=== PATIENT | male | born 1950 | race Caucasian/White ===

== ENCOUNTER 2016-10-15 11:01 | Observation (INO) | payer OTHER, BC ==
[~2016-10-15] VITALS: Ht 188 cm; Wt 84.3 kg
[~2016-10-15 11:01] MED LIST: ALBU1AER9; FLUT50SP14 NAE; LAMO200T PO; MULT-506 PO; WARF5TAB90 PO; WARF7.5T PO
[2016-10-15] MEDS ORDERED: SODIUM CHLORIDE 0.9% 1000ML 1,000 ML IV STA (11:25)
[2016-10-15 11:52] LABS: BASO % 0.9 %; BASO ABS # 0.04 K/uL (0-0.2); COMPLETE YES; EOS % 5.4 %; IG% 0.2 %; LYMPH % 25.9 %; LYMPH ABS # 1.11 K/uL (1.2-3.4); MEAN CELL VOLUME 93.8 fL (80-100); MEAN CORPUSCULAR HEMOGLOBIN 30.9 pg (25-34); MEAN CORPUSCULAR HGB CONC 32.9 g/dl (32-36); MEAN PLATELET VOLUME 10.1 fL (7.4-10.4); MONO % 9.6 %; PLATELET COUNT 191 K/uL (130-400); RED BLOOD COUNT 4.37 M/uL (4.7-6.1); WHITE BLOOD COUNT 4.28 K/uL (4.8-10.8)
[2016-10-15 11:59] LABS: ALT/SGPT 25 U/L (12-78); BLOOD UREA NITROGEN 17 mg/dl (7-18); BUN/CREATININE RATIO 16.7 (10-20); CALCIUM 8.7 mg/dl (8.5-10.1); CARBON DIOXIDE 28 mmol/L (21-32); CHLORIDE 108 mmol/L (98-107); CREATININE 0.99 mg/dl (0.60-1.40); GLUCOSE 97 mg/dl (70-99); MAGNESIUM 1.8 mg/dl (1.8-2.4); POTASSIUM 4.1 mmol/L (3.5-5.1); SODIUM 141 mmol/L (136-145)
[2016-10-15 12:00] LABS: PARTIAL THROMBOPLASTIN RATIO 1.3; PROTHROMBIN TIME (PATIENT) 22.5 SECONDS (9.0-12.0)
[2016-10-15 12:08] LABS: ALKALINE PHOSPHATASE 66 U/L (45-117); AST/SGOT 20 U/L (15-37); CKMB/CK RATIO 1.4 (0-3.0); THYROID STIMULATING HORMONE 0.655 uIu/ml (0.300-4.500)
[2016-10-15 12:12] LABS: URINE APPEARANCE CLEAR (CLEAR); URINE BILIRUBIN NEG (NEG); URINE COLOR YELLOW; URINE NITRITE NEG (NEG); URINE SPECIFIC GRAVITY 1.011 (1.000-1.030); UROBILINOGEN NEG (NEG)
[2016-10-15 12:15] LABS: MANUAL MICROSCOPIC REQUIRED? NO; REVIEW REQ? NO
--- NOTE | 2016-10-15 12:19 | DIAGNOSTIC IMAGING REPORT ---
SINGLE VIEW CHEST CLINICAL HISTORY: Generalized weakness. FINDINGS: 2 AP, portable, upright chest radiographs are compared to study dated 09/13/2011. The examination is mildly degraded by portable technique and patient rotation. The heart is top normal for projection and there is atherosclerotic calcification of the thoracic aorta. The pulmonary vasculature is noncongested. The lungs and pleural spaces are clear. No pneumothorax is seen. The skeletal structures appear osteopenic. Degenerative change is noted in the thoracic spine. Cholecystotomy clips are observed. IMPRESSION: No acute cardiopulmonary abnormality. Electronically signed by: Fede Chase M.D. 10/15/2016 12:18 PM Dictated Date/Time: 10/15/2016 12:17 PM
[2016-10-15] MEDS ORDERED: VNTHFA/IN INH (12:31)
[2016-10-15] MEDS ORDERED: QUET1TAB30 PO (12:31)
[2016-10-15] MEDS ORDERED: LISI1TAB3 PO (12:31)
[2016-10-15 14:10] VITALS: BP 134/83; PULSE 75; TEMP 36.7; O2SAT 95; Ht 188 cm; Wt 84.3 kg
[2016-10-15] MEDS ORDERED: NITROGLYCERIN 0.4 MG SL PER TAB CHARGE SL PRN (14:15)
[2016-10-15] MEDS ORDERED: IV FLUIDS COMPLETED PRN (14:30)
[2016-10-15] MEDS ORDERED: LORAZEPAM 0.5 MG TAB PO PRN (14:30)
--- NOTE | 2016-10-15 15:28 | History and Physical ---
History & Physical Date & Time of Service: Oct 15, 2016 at 14:45 Chief Complaint: Cardiac Primary Care Physician: Shmuel Dumas III, M.D. 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 of bifascicular block - states that this morning he started getting dizzy; he could feel the onset of almost passing out. Denied chest pain at that time. He then felt some jaw and throat tightness; initially he thought it was because of albuterol use this morning ( he has required albuterol for the past few days due to change in weather). He sat down, and then walked to the [facility] [place] where his works , but he still felt mildly dizzy and nauseous. Presented to the ER, states that his symptoms had already subsided by the time he came here. Initial set of enzymes negative, EKG shows a bifascicular block, which was present in 2014. Due to this jaw and throat tightness and presyncope, decision was made to admit him. Past Medical/Surgical History Medical Problems: (1) Cardiac arrhythmia Status: Chronic (2) HTN (hypertension) Status: Chronic Social History Smoking Status: Never Smoker Allergies Coded Allergies: No Known Allergies (Verified , 10/15/16) Home Medications Scheduled Albuterol Hfa (Ventolin Hfa), 2-4 PUFFS INH Q6H Lamotrigine (Lamictal), 200 MG PO HS Lisinopril (Zestril), 30 MG PO QAM Multivitamin (Multivitamin), 1 TABLET PO DAILY Quetiapine Fumarate (Seroquel), 25 MG PO HS Warfarin Sodium (Coumadin), 5 MG PO 2XWK Warfarin Sodium (Coumadin), 7.5 MG PO 5XWK Review of Systems Constitutional: No fever, No chills ENT: + sore throat, No hearing loss Respiratory: No cough, No sputum, No shortness of breath, No dyspnea on exertion, No dyspnea at rest Cardiovascular: No chest pain, No edema, No palpitations Abdomen: No pain, No nausea, No vomiting, No diarrhea, No constipation, No GI bleeding Musculoskeletal: No joint pain, No muscle pain Genitourinary - Male: No hematuria, No dysuria, No urinary frequency, No urinary urgency Neurologic: + vertigo (resolved) Psychiatric: + anxiety (controlled with meds), + insomnia (controlled with meds ), No depression symptoms Endocrine: No fatigue Hematologic / Lymphatic: No abnormal bleeding/bruising Integumentary: No rash Allergic / Immunologic: + seasonal allergies, No environmental allergies Physical Exam Vital Signs Date Time Temp Pulse Resp B/P (MAP) Pulse Ox O2 Delivery O2 Flow Rate FiO2 10/15/16 14:10 95 Room Air 10/15/16 13:11 79 16 139/81 95 Room Air 10/15/16 11:49 91 18 143/89 98 Room Air 61 142/84 101 153/82 10/15/16 11:12 88 10/15/16 11:09 96 Room Air 10/15/16 11:09 37.0 95 18 162/95 96 Room Air 10/15/16 11:09 96 Room Air General Appearance: no apparent distress Head: normocephalic, atraumatic Eyes: normal inspection ENT: hearing grossly normal Neck: supple Respiratory/Chest: chest non-tender, lungs clear, normal breath sounds, no respiratory distress, no accessory muscle use Cardiovascular: regular rate, rhythm, no edema, no gallop, no JVD, no murmur, normal peripheral pulses Abdomen/GI: normal bowel sounds, non tender, soft Extremities/Musculoskelatal: no calf tenderness, normal capillary refill, no pedal edema, + pertinent finding (L leg bigger than R leg, chronically) Neurologic/Psych: no motor/sensory deficits, alert, normal mood/affect Skin: normal color Lymphatic: no adenopathy Diagnostics Laboratory Results Results Past 24 Hours Test 10/15/16 11:34 10/15/16 11:52 Range/Units White Blood Count 4.28 4.8-10.8 K/uL Red Blood Count 4.37 4.7-6.1 M/uL Hemoglobin 13.5 14.0-18.0 g/dL Hematocrit 41.0 42-52 % Mean Corpuscular Volume 93.8 80-100 fL Mean Corpuscular Hemoglobin 30.9 25-34 pg Mean Corpuscular Hemoglobin Concent 32.9 32-36 g/dl Platelet Count 191 130-400 K/uL Mean Platelet Volume 10.1 7.4-10.4 fL Neutrophils (%) (Auto) 58.0 % Lymphocytes (%) (Auto) 25.9 % Monocytes (%) (Auto) 9.6 % Eosinophils (%) (Auto) 5.4 % Basophils (%) (Auto) 0.9 % Neutrophils # (Auto) 2.48 1.4-6.5 K/uL Lymphocytes # (Auto) 1.11 1.2-3.4 K/uL Monocytes # (Auto) 0.41 0.11-0.59 K/uL Eosinophils # (Auto) 0.23 0-0.5 K/uL Basophils # (Auto) 0.04 0-0.2 K/uL RDW Standard Deviation 45.3 36.4-46.3 fL RDW Coefficient of Variation 13.2 11.5-14.5 % Immature Granulocyte % (Auto) 0.2 % Immature Granulocyte # (Auto) 0.01 0.00-0.02 K/uL Prothrombin Time 22.5 9.0-12.0 SECONDS Prothromb Time International Ratio 2.0 0.9-1.1 Activated Partial Thromboplast Time 33.3 21.0-31.0 SECONDS Partial Thromboplastin Ratio 1.3 Sodium Level 141 136-145 mmol/L Potassium Level 4.1 3.5-5.1 mmol/L Chloride Level 108 98-107 mmol/L Carbon Dioxide Level 28 21-32 mmol/L Anion Gap 5.0 3-11 mmol/L Blood Urea Nitrogen 17 7-18 mg/dl Creatinine 0.99 0.60-1.40 mg/dl Est Creatinine Clear Calc Drug Dose 84.2 ml/min Estimated GFR () 91.0 Estimated GFR (Non- 78.5 BUN/Creatinine Ratio 16.7 10-20 Random Glucose 97 70-99 mg/dl Calcium Level 8.7 8.5-10.1 mg/dl Magnesium Level 1.8 1.8-2.4 mg/dl Total Bilirubin 0.3 0.2-1 mg/dl Direct Bilirubin < 0.1 0-0.2 mg/dl Aspartate Amino Transf (AST/SGOT) 20 15-37 U/L Alanine Aminotransferase (ALT/SGPT) 25 12-78 U/L Alkaline Phosphatase 66 45-117 U/L Total Creatine Kinase 188 39-308 U/L Creatine Kinase MB 2.7 0.5-3.6 ng/ml Creatine Kinase MB Ratio 1.4 0-3.0 Troponin I < 0.015 0-0.045 ng/ml Total Protein 6.7 6.4-8.2 gm/dl Albumin 3.4 3.4-5.0 gm/dl Lipase 135 73-393 U/L Thyroid Stimulating Hormone (TSH) 0.655 0.300-4.500 uIu/ml Urine Color YELLOW Urine Appearance CLEAR CLEAR Urine pH 7.0 4.5-7.5 Urine Specific [place] 1.011 1.000-1.030 Urine Protein NEG NEG Urine Glucose (UA) NEG NEG Urine Ketones NEG NEG Urine Occult Blood NEG NEG Urine Nitrite NEG NEG Urine Bilirubin NEG NEG Urine Urobilinogen NEG NEG Urine Leukocyte Esterase NEG NEG Diagnostic Radiology SINGLE VIEW CHEST CLINICAL HISTORY: Generalized weakness. FINDINGS: 2 AP, portable, upright chest radiographs are compared to study dated 09/13/2011. The examination is mildly degraded by portable technique and patient rotation. The heart is top normal for projection and there is atherosclerotic calcification of the thoracic aorta. The pulmonary vasculature is noncongested. The lungs and pleural spaces are clear. No pneumothorax is seen. The skeletal structures appear osteopenic. Degenerative change is noted in the thoracic spine. Cholecystotomy clips are observed. IMPRESSION: No acute cardiopulmonary abnormality. 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 of bifascicular block presents with presyncope and throat/jaw tightness Presyncope, r/o ACS, r/o arrhythmias monitor in tele EKG = bifascicular block, seems similar to previous EKG in 2015 initial cardiac enzyme negative trend enzymes check echo monitor in tele possible stress as per cardiology due to jaw pain, throat tightness, possibly atypical pain related to ACS check orthostatics Hx. of DVT continue Coumadin (5mg M and F, 7.5mg the other days) goal INR of 2-3 HTN continue Lisinopril BP stable DVT ppx Coumadin FULL CODE Advanced Directives Existing Living Will: Yes Existing Power of Milk Hauler: Yes VTE Prophylaxis VTE Risk Assessment Done? Y/N: Yes Risk Level: High Given or contraindicated: Warfarin (Coumadin)
[2016-10-15 15:29] VITALS: O2SAT 98
[2016-10-15] MEDS ORDERED: WARFARIN SOD 7.5 MG TAB PO SCH (16:00)
[2016-10-15] MEDS ORDERED: NURSING VERBAL MED ORDER ONE (18:30)
[2016-10-15] MEDS ORDERED: ACETAMINOPHEN 325 MG TAB PO PRN (18:45)
--- NOTE | 2016-10-15 19:20 | EMERGENCY ROOM VISIT NOTE ---
History Report prepared by Viktoriya: Kulwinder Hawkins Under the Supervision of: Dr. Shmuel Hernandez M.D. First contact with patient: 11:05 Chief Complaint: CARDIAC ASSESSMENT Stated Complaint: CARDIAC History of Present Illness The patient is a 66 year old male who presents to the Emergency Room with complaints of an episode of lightheadedness occurring shortly prior to arrival. The patient states that he was walking up a slight incline when he suddenly began feeling generalized weakness, lightheadedness, and dizziness. He states that he felt completely normal this morning other than feeling tired. He states that he had a similar episode occur about 1.5 years ago which passed after about an hour. The patient states that he also experienced a "tightening" in his jaw, nausea and a pain in his throat during the episode. He states that he began sweating after the ambulance arrived. He notes that he has a history of a cardiac arrhythmia. The patient in on Coumadin and has been taking it for 30 years. He is on Seroquel and Lisinopril. He states that he worked out yesterday without difficulty. The patient notes that he had a headache a few days ago which is abnormal for him. Pt denies LOC, chest pain, facial droop, speech slur , fevers, chills, diaphoresis, visual changes, neck pain, tearing pain radiating to the back, personal history or family history of aneurysm or pulmonary embolism, uncontrolled hypertension, breathing difficulties, leg swelling, coagulation abnormalities, prolonged travel, recent surgery or immobilization, nausea, vomiting, abdominal pain, melena, hematochezia, urinary symptoms, numbness, weakness, lymphadenopathy, rash, or other complaints. Source of History: patient Onset: shortly prior to arrival Quality: other (lightheadedness) Timing: other (episode) Associated Symptoms: + nausea, + weakness (generalized) Note: The patient also experienced a "tightening" in his jaw and a pain in his throat during the episode. Review of Systems See HPI for pertinent positives and negatives. A total of ten systems were reviewed and were otherwise negative. Past Medical & Surgical Medical Problems: (1) Cardiac arrhythmia (2) HTN (hypertension) (3) Pre-syncope Family History No pertinent family history stated. Social History Housing Status: lives with significant other Occupation Status: employed Current/Historical Medications Scheduled Albuterol Hfa (Ventolin Hfa), 2-4 PUFFS INH Q6H Lamotrigine (Lamictal), 200 MG PO HS Lisinopril (Zestril), 30 MG PO QAM Multivitamin (Multivitamin), 1 TABLET PO DAILY Quetiapine Fumarate (Seroquel), 25 MG PO HS Warfarin Sodium (Coumadin), 5 MG PO 2XWK Warfarin Sodium (Coumadin), 7.5 MG PO 5XWK Allergies Coded Allergies: No Known Allergies (Verified , 10/15/16) Physical Exam Vital Signs Date Time Temp Pulse Resp B/P (MAP) Pulse Ox O2 Delivery O2 Flow Rate FiO2 10/15/16 13:11 79 16 139/81 95 Room Air 10/15/16 11:49 91 18 143/89 98 Room Air 61 142/84 101 153/82 10/15/16 11:12 88 10/15/16 11:09 96 Room Air 10/15/16 11:09 37.0 95 18 162/95 96 Room Air 10/15/16 11:09 96 Room Air Physical Exam GENERAL: Awake, alert, well appearing, no distress HENT: Normocephalic, atraumatic. TM's normal. Oropharynx unremarkable. EYES: PERRL. EOMI. Normal conjunctiva. Sclera non-icteric. NECK: Supple. No nuchal rigidity. FROM. No JVD or bruit. RESPIRATORY: CTA CARDIAC: RRR. No murmur. ABDOMEN: Soft, non distended. No tenderness to palpation. No rebound or guarding. No masses. RECTAL: Deferred. MUSCULOSKELETAL: Unremarkable. No edema. No discoloration. Gross motor strength symmetric. NEURO: Cranial nerves 2-12 grossly intact. Normal sensorium. No sensory or motor deficits noted. Speech normal. No pronator drift. SKIN: No rash or jaundice noted. LYMPH: No adenopathy. Medical Decision & Procedures ER Provider Diagnostic Interpretation: X-ray: Per my interpretation, radiologist review. SINGLE VIEW CHEST FINDINGS: 2 AP, portable, upright chest radiographs are compared to study dated 09/13/2011. The examination is mildly degraded by portable technique and patient rotation. The heart is top normal for projection and there is atherosclerotic calcification of the thoracic aorta. The pulmonary vasculature is noncongested. The lungs and pleural spaces are clear. No pneumothorax is seen. The skeletal structures appear osteopenic. Degenerative change is noted in the thoracic spine. Cholecystotomy clips are observed. IMPRESSION: No acute cardiopulmonary abnormality. Electronically signed by: Fede Chase M.D. Laboratory Results 10/15/16 11:34 Red Blood Count 4.37, Mean Corpuscular Volume 93.8, Mean Corpuscular Hemoglobin 30.9, Mean Corpuscular Hemoglobin Concent 32.9, Mean Platelet Volume 10.1, Neutrophils (%) (Auto) 58.0, Lymphocytes (%) (Auto) 25.9, Monocytes (%) (Auto) 9.6, Eosinophils (%) (Auto) 5.4, Basophils (%) (Auto) 0.9, Neutrophils # (Auto) 2.48, Lymphocytes # (Auto) 1.11, Monocytes # (Auto) 0.41, Eosinophils # (Auto) 0.23, Basophils # (Auto) 0.04 10/15/16 11:34 Test 10/15/16 11:34 10/15/16 11:52 White Blood Count 4.28 K/uL (4.8-10.8) Red Blood Count 4.37 M/uL (4.7-6.1) Hemoglobin 13.5 g/dL (14.0-18.0) Hematocrit 41.0 % (42-52) Mean Corpuscular Volume 93.8 fL (80-100) Mean Corpuscular Hemoglobin 30.9 pg (25-34) Mean Corpuscular Hemoglobin Concent 32.9 g/dl (32-36) Platelet Count 191 K/uL (130-400) Mean Platelet Volume 10.1 fL (7.4-10.4) Neutrophils (%) (Auto) 58.0 % Lymphocytes (%) (Auto) 25.9 % Monocytes (%) (Auto) 9.6 % Eosinophils (%) (Auto) 5.4 % Basophils (%) (Auto) 0.9 % Neutrophils # (Auto) 2.48 K/uL (1.4-6.5) Lymphocytes # (Auto) 1.11 K/uL (1.2-3.4) Monocytes # (Auto) 0.41 K/uL (0.11-0.59) Eosinophils # (Auto) 0.23 K/uL (0-0.5) Basophils # (Auto) 0.04 K/uL (0-0.2) RDW Standard Deviation 45.3 fL (36.4-46.3) RDW Coefficient of Variation 13.2 % (11.5-14.5) Immature Granulocyte % (Auto) 0.2 % Immature Granulocyte # (Auto) 0.01 K/uL (0.00-0.02) Prothrombin Time 22.5 SECONDS (9.0-12.0) Prothromb Time International Ratio 2.0 (0.9-1.1) Activated Partial Thromboplast Time 33.3 SECONDS (21.0-31.0) Partial Thromboplastin Ratio 1.3 Anion Gap 5.0 mmol/L (3-11) Est Creatinine Clear Calc Drug Dose 84.2 ml/min Estimated GFR () 91.0 Estimated GFR (Non- 78.5 BUN/Creatinine Ratio 16.7 (10-20) Calcium Level 8.7 mg/dl (8.5-10.1) Magnesium Level 1.8 mg/dl (1.8-2.4) Total Bilirubin 0.3 mg/dl (0.2-1) Direct Bilirubin < 0.1 mg/dl (0-0.2) Aspartate Amino Transf (AST/SGOT) 20 U/L (15-37) Alanine Aminotransferase (ALT/SGPT) 25 U/L (12-78) Alkaline Phosphatase 66 U/L (45-117) Total Creatine Kinase 188 U/L (39-308) Creatine Kinase MB 2.7 ng/ml (0.5-3.6) Creatine Kinase MB Ratio 1.4 (0-3.0) Troponin I < 0.015 ng/ml (0-0.045) Total Protein 6.7 gm/dl (6.4-8.2) Albumin 3.4 gm/dl (3.4-5.0) Lipase 135 U/L (73-393) Thyroid Stimulating Hormone (TSH) 0.655 uIu/ml (0.300-4.500) Urine Color YELLOW Urine Appearance CLEAR (CLEAR) Urine pH 7.0 (4.5-7.5) Urine Specific [place] 1.011 (1.000-1.030) Urine Protein NEG (NEG) Urine Glucose (UA) NEG (NEG) Urine Ketones NEG (NEG) Urine Occult Blood NEG (NEG) Urine Nitrite NEG (NEG) Urine Bilirubin NEG (NEG) Urine Urobilinogen NEG (NEG) Urine Leukocyte Esterase NEG (NEG) Laboratory results reviewed by me Medications Administered Medications (Trade) Dose Ordered Sig/Earl Route Start Time Stop Time Status Last Admin Dose Admin Sodium Chloride 1,000 ml @ 125 mls/hr Q8H STAT IV 10/15/16 11:25 10/15/16 19:24 10/15/16 11:25 125 MLS/HR ECG Indication: other (lightheadedness) Rate (beats per minute): 104 Rhythm: sinus tachycardia Findings: LAFB, PVC, RBBB, no acute ischemic change Comparison ECG Date: Pre-Hospital Change: no significant change Change: Compared to an ECG from December 17, 2014, the PVC is new. ED Course 1112: The patient was evaluated in room B2. A complete history and physical exam was performed. 1125: Ordered Sodium Chloride 1000 ml @ 125 mls/hr IV. 1343: Upon reexamination, the patient was resting comfortably. I discussed the test results and treatment plan with him. The patient will be evaluated for further management. Medical Decision Triage Nursing notes reviewed. The patient's presentation and history were concerning for near syncope and weakness. Etiologies such as vasovagal event, infection, hypoglycemia, electrolyte abnormalities, cardiac sources, intracerebral event, toxicologic, neurologic, as well as others were entertained. The patient was evaluated. He noted sudden onset of his symptoms. He denied any vertigo or room spinning sensation. He had no focal weakness. EMS and I discussed the patient's case prehospital. He had no stroke findings for EMS. The patient actually is feeling relatively well upon arrival. His ECG showed a bifascicular block. Blood work was obtained. He had a mild anemia. His INR was therapeutic at 2.0. His electrolytes and other laboratory values were unremarkable. Imaging was unremarkable as well. Orthostatic testing was performed the patient had some brisk fluctuation of his heart rate and did feel somewhat off with this. Because of this I did discuss the case with Dr. Handy of [facility] cardiology. It was felt the patient should be monitored and have a full cardiac workup performed given his symptoms and the orthostasis in light of the bifascicular block. The patient and family were updated. They were comfortable with this plan. I did discuss the case with the hospitalist. The patient was evaluated in the Emergency Room for further management. Medication Reconcilliation Current Medication List: was personally reviewed by me Blood Pressure Screening Patient's blood pressure: Elevated blood pressure Referral was deferred to the hospitalist team. Consults Time Called: 1324 Consulting Physician: Dr. Rice -Cardiology Returned Call: 1330 Discussed the patient's case. Dr. Rice recommends that the patient be admitted for further evaluation. Additional Consults: Time Called: 1340 Consulted Physician: Dr. Leandro Jonas Returned Call: 1346 Additional Comments: Discussed the patient's case. The patient will be evaluated for further treatment and disposition. Impression Primary Impression: Near syncope Additional Impressions: Weakness Orthostasis Scribe Attestation The scribe's documentation has been prepared under my direction and personally reviewed by me in its entirety. I confirm that the note above accurately reflects all work, treatment, procedures, and medical decision making performed by me. Departure Information Dispostion Being Evaluated By Hospitalist Referrals Shmuel Dumas III, M.D. (PCP) Patient Instructions [facility] Problem Qualifiers
[2016-10-15 19:53] VITALS: BP 155/85; PULSE 78; O2SAT 97
[2016-10-15 20:13] LABS: CKMB/CK RATIO 1.3 (0-3.0)
[2016-10-15] MEDS ORDERED: QUETIAPINE FUMARATE 25 MG TAB PO SCH (21:00)
[2016-10-15] MEDS ORDERED: LAMOTRIGINE 200 MG PO SCH (21:00)
[2016-10-15] MEDS ORDERED: QUETIAPINE FUMARATE 100 MG TAB PO SCH (21:00)
--- NOTE | 2016-10-15 23:10 | CARDIOLOGY CONSULTATION ---
DATE OF CONSULTATION: 10/15/2016 REFERRING PHYSICIAN: Dr. Karen Reeves. REASON FOR CONSULTATION: Throat discomfort, lightheadedness. HISTORY OF PRESENT ILLNESS: Mr. Romero is a 66-year-old male patient with a past medical history of deep venous thrombosis x2, on long-term anticoagulation, hypertension, anxiety and bifascicular block. This morning the patient went for a walk through campus. He became acutely lightheaded and felt as if he was going to pass out. He managed to make it to a park bench. He sat for approximately 20 minutes. He noted some tightness in his throat which gradually resolved. Eventually, he was able to walk to his 's store where he continued to feel quite lightheaded. No overt syncope. There was no chest discomfort or shortness of breath. Feels that this may have been related to some albuterol as well as a large cup of coffee he drank this morning. He summoned EMS and they came to the Emergency Department. His ECG demonstrated sinus tachycardia with a bifascicular block (right bundle-branch block, left anterior fascicular block). Initial set of cardiac enzymes is negative. He was then admitted to the progressive care unit through the hospitalist service. Currently, the patient is resting comfortably. Telemetry demonstrates sinus rhythm with occasional blocked PACs, isolated PAC's, and atrial couplets. No recurrent chest or jaw discomfort. Denies any recent change in functional capacity, palpitations, orthopnea, PND or claudication. Notes chronic left lower extremity edema related to previous soccer injury. This was also the leg which suffered deep venous thrombosis x2. He has been on Coumadin for more than 30 years. Offers no other complaints at this time. REVIEW OF SYSTEMS: The pertinent positives are notable above. A comprehensive 10-system review is otherwise negative. PAST MEDICAL HISTORY: 1. DVT x2, on chronic anticoagulation. 2. Colon polyp. 3. Bifascicular block. 4. Pulsatile tinnitus. 5. GERD. 6. Epistaxis. 7. Cholecystitis. 8. Reactive airways disease. 9. Actinic keratosis. PAST SURGICAL HISTORY: Orthopedic knee surgery. SOCIAL HISTORY: Lifelong nonsmoker. He is and lives with his . He is a retired professor. ALLERGIES: No known drug allergies. OUTPATIENT MEDICATIONS: 1. Albuterol inhaler 2-4 puffs q. 6 hours. 2. Lamictal 200 mg at bedtime. 3. Zestril 30 mg a day. 4. Multivitamin daily. 5. Seroquel 25 mg daily. 6. Warfarin 5 mg 2 days per day, 7.5 mg 5 days per week. 7. Singulair 10 mg daily. Chest x-ray on admission, no acute cardiopulmonary abnormality. LABORATORY DATA: White blood cell count 4.28, hemoglobin is 13.5, platelet count is 191. Sodium 141, potassium 4.1, chloride is 108, CO2 is 28, BUN is 17, creatinine is 0.99. Troponins undetectable. TSH 0.655. INR is 2.0. Urinalysis within normal limits. PHYSICAL EXAMINATION: VITAL SIGNS: Temperature is 37 degrees centigrade, pulse is 84 beats per minute and regular, respiratory rate 16 breaths per minute, blood pressure 152/89, SaO2 98% on room air. GENERAL: NAD, awake, alert and oriented x3. He is pleasant and cooperative. THROAT: His mucous membranes are moist. There is no scleral icterus. Conjunctivae are pink. NECK: Supple. There is no JVD, no HJR, no carotid bruit. HEART: Regular with a normal S1 and S2. There is no murmur, rub or gallop. LUNGS: Clear bilateral without rales, rhonchi or wheeze. ABDOMEN: Soft, nontender. No rebound or guarding. Normal bowel sounds. EXTREMITIES: Warm and dry. There is mild left lower extremity pedal edema with stasis changes in the pretibial region. There is no calf tenderness. Distal pulses are palpable. NEUROLOGIC: Demonstrates no focal motor deficit. FINAL IMPRESSION: 1. A 66-year-old male presents with near syncope and throat discomfort. 2. Hypertension -- controlled. 3. History of deep venous thrombosis, on chronic anticoagulation. 4. Bifascicular block. 5. Occasional PAC's - asymptomatic PLAN AND RECOMMENDATIONS: I had a long discussion with the patient and his regarding his symptoms. We will continue telemetry monitoring to exclude presence of tachy or manan dysrhythmias. Further ischemic evaluation is warranted given presence of exertional symptoms. An exercise stress echo will be performed in the a.m. if cardiac enzymes are within normal limits. A complete resting 2D transthoracic echo will be performed prior to stress testing. He will continue current outpatient medications as previously ordered. I will continue to follow closely during hospitalization. Thank you for allowing me to take part in the care of your patient. MONIQUE
[2016-10-16] VITALS: BP_SYST 128; BP_SYST 129; BP_SYST 132; BP_DIAS 67; BP_DIAS 83; BP_DIAS 85; PULSE 63; PULSE 69; PULSE 71; TEMP 36.3; O2SAT 95
[2016-10-16 04:01] LABS: HEMATOCRIT 39.6 % (42-52); MEAN CELL VOLUME 95.2 fL (80-100); MEAN CORPUSCULAR HEMOGLOBIN 31.3 pg (25-34); MEAN CORPUSCULAR HGB CONC 32.8 g/dl (32-36); MEAN PLATELET VOLUME 9.9 fL (7.4-10.4); PLATELET COUNT 188 K/uL (130-400); RED BLOOD COUNT 4.16 M/uL (4.7-6.1); WHITE BLOOD COUNT 5.57 K/uL (4.8-10.8)
[2016-10-16 04:03] VITALS: BP 140/77; PULSE 75; TEMP 36.5; O2SAT 95
[2016-10-16 04:19] LABS: BUN/CREATININE RATIO 15.1 (10-20); CALCIUM 8.5 mg/dl (8.5-10.1); CREATININE 1.1 mg/dl (0.60-1.40); POTASSIUM 4.4 mmol/L (3.5-5.1)
[2016-10-16 04:24] LABS: CHOLESTEROL/HDL RATIO 3.7; CKMB/CK RATIO 1.6 (0-3.0)
[2016-10-16 08:21] VITALS: BP_SYST 133; BP_SYST 137; BP_SYST 149; BP_DIAS 78; BP_DIAS 91; BP_DIAS 93; PULSE 76; PULSE 80; TEMP 36.4; O2SAT 96
[2016-10-16 08:22] LABS: PROTHROMBIN TIME (PATIENT) 22.5 SECONDS (9.0-12.0)
[2016-10-16] MEDS ORDERED: NURSING VERBAL MED ORDER ONE (08:45)
--- NOTE | 2016-10-16 08:46 | Progress Note ---
Subjective Date of Service: Oct 16, 2016. Subjective Pt evaluation today including: conversation w/ patient, physical exam, lab review, review of studies, review of inpatient medication list Saw/examined the patient in room 208 No problems/issues to note today, denies chest pain or shortness of breath Denies dizziness or syncopal episode Problem List Medical Problems: (1) Near syncope Status: Acute (2) Orthostasis Status: Acute (3) Weakness Status: Acute Review of Systems Constitutional: No fever, No chills Respiratory: No cough, No sputum, No wheezing, No shortness of breath, No dyspnea on exertion Cardiac: No chest pain, No edema, No palpitations Abdomen: No pain, No nausea, No vomiting, No diarrhea Male : No dysuria, No urinary frequency Neurologic: No vertigo, No balance problems Medications Current Inpatient Medications Medications (Trade) Dose Ordered Sig/Earl Route Start Time Stop Time Status Last Admin Dose Admin Nitroglycerin (Nitrostat Tab) 0.4 mg UD PRN SL 10/15/16 14:15 11/14/16 14:14 Multivitamins (Multivitamin Tab) 1 tab DAILY PO 10/16/16 09:00 11/15/16 08:59 10/16/16 07:51 1 TAB Warfarin Sodium (Coumadin Tab) 5 mg MoFr@1600 PO 10/16/16 16:00 11/15/16 15:59 Warfarin Sodium (Coumadin Tab) 7.5 mg SuTuWeThSa@1600 PO 10/15/16 16:00 11/14/16 15:59 Lorazepam (Ativan Tab) 0.5 mg BID PRN PO 10/15/16 14:30 11/14/16 14:29 Miscellaneous (Iv Fluids Completed) 1 ea PRN PRN N/A 10/15/16 14:30 10/15/17 14:29 Non-Formulary Medication (Non-Formulary Patient'S Own Med) 1 ea QAM PO 10/16/16 09:00 11/15/16 08:59 10/16/16 07:51 1 EA Acetaminophen (Tylenol Tab) 650 mg Q4H PRN PO 10/15/16 18:45 11/14/16 18:44 10/15/16 19:59 650 MG Non-Formulary Medication (Non-Formulary Patient'S Own Med) 1 ea HS PO 10/15/16 21:00 11/14/16 20:59 10/15/16 22:32 1 EA Quetiapine Fumarate (seroQUEL TAB) 25 mg HS PO 10/15/16 21:00 11/14/16 20:59 10/15/16 22:33 25 MG Objective Vital Signs Date Time Temp Pulse Resp B/P (MAP) Pulse Ox O2 Delivery O2 Flow Rate FiO2 10/16/16 08:21 36.4 76 18 133/78 (96) 96 Room Air 76 137/93 (108) 80 149/91 (110) 10/16/16 04:03 36.5 75 18 140/77 (98) 95 Room Air 10/16/16 04:00 Room Air 10/16/16 00:02 Room Air 10/16/16 00:00 36.3 63 18 132/67 (88) 95 Room Air 69 128/83 (98) 71 129/85 (100) 10/15/16 20:00 Room Air 10/15/16 19:53 78 20 155/85 (108) 97 Room Air 10/15/16 15:29 84 16 152/89 98 Room Air 10/15/16 14:10 36.7 75 16 134/83 95 Room Air 10/15/16 13:11 79 16 139/81 95 Room Air 10/15/16 11:49 91 18 143/89 98 Room Air 61 142/84 101 153/82 10/15/16 11:12 88 10/15/16 11:09 96 Room Air 10/15/16 11:09 37.0 95 18 162/95 96 Room Air 10/15/16 11:09 96 Room Air Physical Exam General Appearance: no apparent distress Respiratory/Chest: chest non-tender, lungs clear, normal breath sounds, no respiratory distress, no accessory muscle use Cardiovascular: regular rate, rhythm, no edema, no murmur Abdomen: normal bowel sounds, non tender, soft Extremities: normal inspection, no pedal edema Neurologic/Psychiatric: no motor/sensory deficits, alert, normal mood/affect Laboratory Results Last 24 Hours Test 10/15/16 11:34 10/15/16 11:52 10/15/16 19:39 10/16/16 03:46 White Blood Count 4.28 K/uL 5.57 K/uL Red Blood Count 4.37 M/uL 4.16 M/uL Hemoglobin 13.5 g/dL 13.0 g/dL Hematocrit 41.0 % 39.6 % Mean Corpuscular Volume 93.8 fL 95.2 fL Mean Corpuscular Hemoglobin 30.9 pg 31.3 pg Mean Corpuscular Hemoglobin Concent 32.9 g/dl 32.8 g/dl Platelet Count 191 K/uL 188 K/uL Mean Platelet Volume 10.1 fL 9.9 fL Neutrophils (%) (Auto) 58.0 % Lymphocytes (%) (Auto) 25.9 % Monocytes (%) (Auto) 9.6 % Eosinophils (%) (Auto) 5.4 % Basophils (%) (Auto) 0.9 % Neutrophils # (Auto) 2.48 K/uL Lymphocytes # (Auto) 1.11 K/uL Monocytes # (Auto) 0.41 K/uL Eosinophils # (Auto) 0.23 K/uL Basophils # (Auto) 0.04 K/uL RDW Standard Deviation 45.3 fL 45.7 fL RDW Coefficient of Variation 13.2 % 13.2 % Immature Granulocyte % (Auto) 0.2 % Immature Granulocyte # (Auto) 0.01 K/uL Prothrombin Time 22.5 SECONDS Prothromb Time International Ratio 2.0 Activated Partial Thromboplast Time 33.3 SECONDS Partial Thromboplastin Ratio 1.3 Sodium Level 141 mmol/L 144 mmol/L Potassium Level 4.1 mmol/L 4.4 mmol/L Chloride Level 108 mmol/L 109 mmol/L Carbon Dioxide Level 28 mmol/L 33 mmol/L Anion Gap 5.0 mmol/L 2.0 mmol/L Blood Urea Nitrogen 17 mg/dl 17 mg/dl Creatinine 0.99 mg/dl 1.10 mg/dl Est Creatinine Clear Calc Drug Dose 84.2 ml/min 75.8 ml/min Estimated GFR () 91.0 80.1 Estimated GFR (Non- 78.5 69.1 BUN/Creatinine Ratio 16.7 15.1 Random Glucose 97 mg/dl 85 mg/dl Calcium Level 8.7 mg/dl 8.5 mg/dl Magnesium Level 1.8 mg/dl Total Bilirubin 0.3 mg/dl Direct Bilirubin < 0.1 mg/dl Aspartate Amino Transf (AST/SGOT) 20 U/L Alanine Aminotransferase (ALT/SGPT) 25 U/L Alkaline Phosphatase 66 U/L Total Creatine Kinase 188 U/L 143 U/L 105 U/L Creatine Kinase MB 2.7 ng/ml 1.9 ng/ml 1.7 ng/ml Creatine Kinase MB Ratio 1.4 1.3 1.6 Troponin I < 0.015 ng/ml 0.022 ng/ml 0.019 ng/ml Total Protein 6.7 gm/dl Albumin 3.4 gm/dl Lipase 135 U/L Thyroid Stimulating Hormone (TSH) 0.655 uIu/ml Urine Color YELLOW Urine Appearance CLEAR Urine pH 7.0 Urine Specific [place] 1.011 Urine Protein NEG Urine Glucose (UA) NEG Urine Ketones NEG Urine Occult Blood NEG Urine Nitrite NEG Urine Bilirubin NEG Urine Urobilinogen NEG Urine Leukocyte Esterase NEG Triglycerides Level 102 mg/dl Cholesterol Level 147 mg/dl HDL Cholesterol 40 mg/dl LDL Cholesterol, Calculated 87 mg/dl VLDL Cholesterol, Calculated 20 mg/dl Cholesterol/HDL Ratio 3.7 Test 10/16/16 07:56 Prothrombin Time 22.5 SECONDS Prothromb Time International Ratio 2.0 Assessment and Plan This is a 66 year old male with a 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 of bifascicular block presents with presyncope and throat/jaw tightness Presyncope, r/o ACS, r/o arrhythmias 10/16 cardiac enzymes negative x3 EKG, NSR with RBBB noted echo pending plan is for stress echo later today patient currently NPO continue current medications d/c if stress is negative as presyncopal/dizziness episodes have resolved 10/15 monitor in tele EKG = bifascicular block, seems similar to previous EKG in 2015 initial cardiac enzyme negative trend enzymes check echo monitor in tele possible stress as per cardiology due to jaw pain, throat tightness, possibly atypical pain related to ACS check orthostatics Hx. of DVT continue Coumadin (5mg M and F, 7.5mg the other days) goal INR of 2-3 HTN continue Lisinopril BP stable DVT ppx Coumadin FULL CODE
[2016-10-16] MEDS ORDERED: LISINOPRIL 10 MG TAB PO SCH (09:00)
[2016-10-16] MEDS ORDERED: WARFARIN SOD 5 MG TAB PO SCH ×3 (09:00→16:00)
[2016-10-16] MEDS ORDERED: LISINOPRIL 30 MG PO SCH (09:00)
[2016-10-16] MEDS ORDERED: MULTIVITAMIN TAB PO SCH (09:00)
--- NOTE | 2016-10-16 11:15 | Cardiology Follow-Up ---
Subjective General Date of Service: Oct 16, 2016. Pt evaluation today including: conversation w/ patient, physical exam, chart review, lab review, review of studies, review of inpatient medication list History of Present Illness The patient is a 66 year old male seen in follow-up. No events on telemetry overnight. Occasional PACs and PVCs recorded. No sustained dysrhythmias, significant pauses, heart block, or symptomatically bradycardia. No recurrent chest or throat discomfort. Patient offers no complaints this time. Allergies Coded Allergies: No Known Allergies (Verified , 10/15/16) Social History Smoking Status: Never Smoker Hx Tobacco Use In Past Year?: No Hx Alcohol Use - Type And Amou: No Hx Substance Use - Type And Am: No Problem List Medical Problems: (1) Near syncope Status: Acute (2) Orthostasis Status: Acute (3) Weakness Status: Acute Review of Systems Respiratory: No cough, No sputum, No wheezing, No shortness of breath, No dyspnea on exertion, No dyspnea at rest, No hemoptysis Cardiac: No chest pain, No orthopnea, No PND, No edema, No claudication, No palpitations Physical Exam Vital Signs Last Vital Signs Documentation Date Time Temp Pulse Resp B/P (MAP) Pulse Ox O2 Delivery O2 Flow Rate FiO2 10/16/16 08:21 36.4 76 18 133/78 (96) 96 Room Air 76 137/93 (108) 80 149/91 (110) Physical Exam Constitutional: General Apperance: heathly-appearing Level of Distress: NAD Ambulation: ambulating normally Head: normocephalic, atraumatic ENMT: normal ENT inspection Neck: supple, trachea midline Lungs: Auscultation: breath sounds normal, no wheezing, no rales/crackles, no rhonchi Cardiovascular: Heart Auscultation: RRR, normal S1, normal S2, no murmurs, no rubs, no gallops Peripheral Pulses: Femoral Pulse: normal on the left, normal on the right Abdomen: Bowel Sounds: normal Inspection & Palpation: soft, non-distended, no tenderness, guarding & rebound Musculoskeletal: normal Extremities: no cyanosis, no edema, no clubbing, no ulcers Neurologic: Gait & Station: pertinent finding (no focal deficit) Cranial Nerves: grossly intact Assessment and Plan Assessment and Plan FINAL IMPRESSION: 1. Near syncope and atypical throat discomfort. - CE negative - no dysrhythmia on telemetry 2. Hypertension -- controlled. 3. History of deep venous thrombosis, on chronic anticoagulation. 4. Bifascicular block. PLAN AND RECOMMENDATIONS: Exercise stress echocardiography will be performed this morning for further risk stratification. Recommend outpatient 14 day ZIO monitor if stress testing is within normal limits. No medication changes this morning. Further recommendations pending review of stress test result. Laboratory Results Last 24 Hours Test 10/15/16 11:34 10/15/16 11:52 10/15/16 19:39 10/16/16 03:46 White Blood Count 4.28 K/uL 5.57 K/uL Red Blood Count 4.37 M/uL 4.16 M/uL Hemoglobin 13.5 g/dL 13.0 g/dL Hematocrit 41.0 % 39.6 % Mean Corpuscular Volume 93.8 fL 95.2 fL Mean Corpuscular Hemoglobin 30.9 pg 31.3 pg Mean Corpuscular Hemoglobin Concent 32.9 g/dl 32.8 g/dl Platelet Count 191 K/uL 188 K/uL Mean Platelet Volume 10.1 fL 9.9 fL Neutrophils (%) (Auto) 58.0 % Lymphocytes (%) (Auto) 25.9 % Monocytes (%) (Auto) 9.6 % Eosinophils (%) (Auto) 5.4 % Basophils (%) (Auto) 0.9 % Neutrophils # (Auto) 2.48 K/uL Lymphocytes # (Auto) 1.11 K/uL Monocytes # (Auto) 0.41 K/uL Eosinophils # (Auto) 0.23 K/uL Basophils # (Auto) 0.04 K/uL RDW Standard Deviation 45.3 fL 45.7 fL RDW Coefficient of Variation 13.2 % 13.2 % Immature Granulocyte % (Auto) 0.2 % Immature Granulocyte # (Auto) 0.01 K/uL Prothrombin Time 22.5 SECONDS Prothromb Time International Ratio 2.0 Activated Partial Thromboplast Time 33.3 SECONDS Partial Thromboplastin Ratio 1.3 Sodium Level 141 mmol/L 144 mmol/L Potassium Level 4.1 mmol/L 4.4 mmol/L Chloride Level 108 mmol/L 109 mmol/L Carbon Dioxide Level 28 mmol/L 33 mmol/L Anion Gap 5.0 mmol/L 2.0 mmol/L Blood Urea Nitrogen 17 mg/dl 17 mg/dl Creatinine 0.99 mg/dl 1.10 mg/dl Est Creatinine Clear Calc Drug Dose 84.2 ml/min 75.8 ml/min Estimated GFR () 91.0 80.1 Estimated GFR (Non- 78.5 69.1 BUN/Creatinine Ratio 16.7 15.1 Random Glucose 97 mg/dl 85 mg/dl Calcium Level 8.7 mg/dl 8.5 mg/dl Magnesium Level 1.8 mg/dl Total Bilirubin 0.3 mg/dl Direct Bilirubin < 0.1 mg/dl Aspartate Amino Transf (AST/SGOT) 20 U/L Alanine Aminotransferase (ALT/SGPT) 25 U/L Alkaline Phosphatase 66 U/L Total Creatine Kinase 188 U/L 143 U/L 105 U/L Creatine Kinase MB 2.7 ng/ml 1.9 ng/ml 1.7 ng/ml Creatine Kinase MB Ratio 1.4 1.3 1.6 Troponin I < 0.015 ng/ml 0.022 ng/ml 0.019 ng/ml Total Protein 6.7 gm/dl Albumin 3.4 gm/dl Lipase 135 U/L Thyroid Stimulating Hormone (TSH) 0.655 uIu/ml Urine Color YELLOW Urine Appearance CLEAR Urine pH 7.0 Urine Specific [place] 1.011 Urine Protein NEG Urine Glucose (UA) NEG Urine Ketones NEG Urine Occult Blood NEG Urine Nitrite NEG Urine Bilirubin NEG Urine Urobilinogen NEG Urine Leukocyte Esterase NEG Triglycerides Level 102 mg/dl Cholesterol Level 147 mg/dl HDL Cholesterol 40 mg/dl LDL Cholesterol, Calculated 87 mg/dl VLDL Cholesterol, Calculated 20 mg/dl Cholesterol/HDL Ratio 3.7 Test 10/16/16 07:56 Prothrombin Time 22.5 SECONDS Prothromb Time International Ratio 2.0
[2016-10-16 12:49] VITALS: BP 133/70; PULSE 77; TEMP 37.4; O2SAT 94
[2016-10-16] MEDS ORDERED: ASPIRIN 81 MG ECTAB PO ONE (13:00)
[2016-10-16] MEDS ORDERED: ATORVASTATIN 20 MG TAB PO ONE (13:00)
--- NOTE | 2016-10-16 13:01 | EXERCISE STRESS ECHO ---
*NOTICE TO RECEIVING CONSTITUTION PARTY AGENCY This information is strictly Confidential and protected under [place] law. [place] law prohibits you from making any further disclosure of this information unless further disclosure is expressly permitted by the written consent of the person to whom it pertains or is authorized by law. A general authorization for the release of medical or other information is not sufficient for this purpose. Hospital accepts no responsibility if the information is made available to any other person, INCLUDING THE PATIENT. Interpretation Summary * Name: NAY PRADHAN Study Date: 10/16/2016 10:11 AM BP: 135/83 mmHg * Patient Location: .2E\S\E208\S\1 HR: 74 * : 1950 (M/d/yyyy) Gender: Male Height: 74 in * Age: 66 yrs Ethnicity: [place] Weight: 185 lb * Ordering Physician: Fady Handy * Referring Physician: Self, Referred * Performed By: Jasmin Alatorre RDCS * * Reason For Study: CHEST PAIN * BSA: 2.1 m2 * Abnormal exercise stress echo demonstrating a focal area of apical inferior ischemia on stress imaging. * No anginal symptoms or ischemic ECG changes at 100% of the maximal age-predicted target heart rate. * Exercise capacity is above average. * The study was technically adequate. * There is no comparison study available. * -- Conclusions -- * Ejection Fraction = 55-60%. * The left ventricular ejection fraction increases normally with stress. The left ventricular end-systolic cavity size reduces post-stress (normal response). The left ventricular wall motion with stress is normal. * Normal resting wall motion with a focal area of apical inferior hypokinesis on stress imaging. * Aortic valve sclerosis mild, without significant aortic valvular stenosis. * Grade I diastolic dysfunction, (abnormal relaxation pattern). Procedure Details * ECHOEX, CPT #92625 * A contrast injection of Definity was performed to improve assessment of LV function. * Contrast was injected into an intravenous site in the left arm. * One vial of Definity ultrasound contrast was diluted in normal saline to a total volume of 10 ml. A total of '4' ml of solution was administered during imaging. * Lot # [id number] of Definity utilized for procedure. * Expiration date OCT 13. * The attending nurse who injected the contrast agent was YANA MAI RN. * ECHO DOPPLER, CPT #[id number] * ECHO COLOR FLOW, CPT #60538 Left Ventricle * The left ventricle is normal in size. * There is no thrombus. * There is normal left ventricular wall thickness. * Ejection Fraction = 55-60%. * Left ventricular systolic function is normal. * The left ventricular ejection fraction increases normally with stress. The left ventricular end-systolic cavity size reduces post-stress (normal response). The left ventricular wall motion with stress is normal. * Normal resting wall motion with a focal area of apical inferior hypokinesis on stress imaging. Right Ventricle * The right ventricle is normal in size and function. Atria * The left atrial size is normal. * Right atrial size is normal. * No ASD detected; PFO is not assessed. Mitral Valve * The mitral valve is normal. * There is no mitral valve stenosis. * There is trace mitral regurgitation. Tricuspid Valve * The tricuspid valve is normal. * There is no tricuspid stenosis. * There is trace tricuspid regurgitation. Aortic Valve * The aortic valve is trileaflet. * Aortic valve sclerosis mild, without significant aortic valvular stenosis. * No hemodynamically significant valvular aortic stenosis. * No aortic regurgitation is present. Pulmonic Valve * The pulmonic valve is not well visualized. Great Vessels * The aortic root is normal size. * Normal IVC. Pericardium * There is no pericardial effusion. Stress Parameters * The baseline ECG displays normal sinus rhythm. * Baseline ECG: RBBB, LAFB * Stress ECG: No ST changes. No arrhythmias. * The stress portion of this study was personally supervised by the undersigned interpreting physician. * Rest heart rate was '74' BPM. * Rest blood pressure was '135/83' * Maximum heart rate achieved was 155 bpm. * Maximum heart rate was 101 % of maximum age-predicted heart rate. * Maximum blood pressure was '199/63' * Total exercise time was '9:31' * Maximum exercise MET level achieved was '10.90' METS * Maximum treadmill speed was '4.2' miles per hour. * Maximum treadmill elevation was '16.00'% grade. * Exercise was terminated due to 'ACHIEVING TARGET HR, fatigue' Left Ventricular Diastolic Function * Grade I diastolic dysfunction, (abnormal relaxation pattern). MMode 2D Measurements and Calculations IVSd 0.85 cm IVSs 1.2 cm LVIDd 5.0 cm LVIDs 3.6 cm LVPWd 0.71 cm LVPWs 1.3 cm IVS/LVPW 1.2 FS 27.6 % EDV(Teich) 119.1 ml ESV(Teich) 55.6 ml EF(Teich) 53.3 % EDV(cubed) 126.2 ml ESV(cubed) 47.9 ml EF(cubed) 62.0 % % IVS thick 46.7 % % LVPW thick 77.3 % LV mass(C)d 131.5 grams LV mass(C)dI 62.5 grams/m\S\2 LV mass(C)s 152.1 grams LV mass(C)sI 72.3 grams/m\S\2 SV(Teich) 63.5 ml SI(Teich) 30.2 ml/m\S\2 SV(cubed) 78.3 ml SI(cubed) 37.2 ml/m\S\2 Ao root diam 3.6 cm Ao root area 9.9 cm\S\2 LA dimension 3.8 cm LA/Ao 1.1 LVAd ap4 37.7 cm\S\2 LVLd ap4 9.6 cm EDV(MOD-sp4) 122.7 ml EDV(sp4-el) 126.0 ml LVAs ap4 23.9 cm\S\2 LVLs ap4 8.1 cm ESV(MOD-sp4) 66.6 ml ESV(sp4-el) 60.1 ml EF(MOD-sp4) 45.7 % EF(sp4-el) 52.3 % LVAd ap2 40.0 cm\S\2 LVLd ap2 10.1 cm EDV(MOD-sp2) 135.9 ml EDV(sp2-el) 135.0 ml LVAs ap2 26.0 cm\S\2 LVLs ap2 8.9 cm ESV(MOD-sp2) 71.2 ml ESV(sp2-el) 64.3 ml EF(MOD-sp2) 47.6 % EF(sp2-el) 52.4 % LVLd %diff 4.6 % EDV(MOD-bp) 127.4 ml LVLs %diff 9.6 % ESV(MOD-bp) 71.8 ml EF(MOD-bp) 43.6 % SV(MOD-sp4) 56.1 ml SI(MOD-sp4) 26.7 ml/m\S\2 SV(MOD-sp2) 64.7 ml SI(MOD-sp2) 30.8 ml/m\S\2 SV(MOD-bp) 55.5 ml SI(MOD-bp) 26.4 ml/m\S\2 SV(sp4-el) 65.9 ml SI(sp4-el) 31.4 ml/m\S\2 SV(sp2-el) 70.7 ml SI(sp2-el) 33.6 ml/m\S\2 Doppler Measurements and Calculations MV E max juan pablo 36.7 cm/sec MV A max juan pablo 52.3 cm/sec MV E/A 0.70 MV dec time 0.26 sec Ao V2 max 122.2 cm/sec Ao max PG 6.0 mmHg Ao max PG (full) 4.2 mmHg LV V1 max PG 1.7 mmHg LV V1 max 66.1 cm/sec
[2016-10-16 15:40] VITALS: BP 125/76; PULSE 75; TEMP 36.8; O2SAT 95
[2016-10-16] MEDS ORDERED: LPT20 PO (15:51)
[2016-10-16] MEDS ORDERED: ASPEC81 PO (15:51)
--- NOTE | 2016-10-16 15:56 | Discharge Instructions ---
Discharge Instructions Date of Service Oct 16, 2016. Admission Reason for Admission: Cardiac Arrhythmia, Pre-Syncope Discharge Discharge Diagnosis / Problem: Presyncope; Apical Ischemia Discharge Goals Goal(s): Decrease discomfort, Improve function, Diagnostic testing, Therapeutic intervention Activity Recommendations Activity Limitations: resume your previous activity . Instructions / Follow-Up Instructions / Follow-Up Please follow-up with Dr. Dumas on October 20 at 1:45PM You will be started on aspirin and Lipitor, take these as prescribed Follow-up with Dr. Handy, cardiology - an outpatient Zio (cardiac) monitor is recommended Current Hospital Diet Patient's current hospital diet: AHA Diet (Heart Healthy) Discharge Diet Recommended Diet: AHA Diet (Heart Healthy) Pending Studies Studies pending at discharge: no Laboratory Results Lipid Panel Test 10/16/16 03:46 Range/Units Triglycerides Level 102 0-150 mg/dl Cholesterol Level 147 0-200 mg/dl HDL Cholesterol 40 mg/dl Cholesterol/HDL Ratio 3.7 LDL Cholesterol, Calculated 87 mg/dl Medical Emergencies . Who to Call and When: Medical Emergencies: If at any time you feel your situation is an emergency, please call 911 immediately. . Non-Emergent Contact Non-Emergency issues call your: Primary Care Provider, Irrigating Pump Operator . . "Provider Documentation" section prepared by Karen Reeves. . VTE Core Measure Inpt VTE Proph given/why not?: Warfarin (Coumadin)
--- NOTE | 2016-10-16 15:57 | Discharge Summary ---
Discharge Summary Date of Service Oct 16, 2016. Discharge Summary Admission Date: Oct 15, 2016 at 14:03 Discharge Date: Oct 16, 2016 Discharge Disposition: Home Principal Diagnosis: Presyncope Apical Ischemia Bifascicular Block Medication Reconciliation New Medications: Aspirin (Aspirin EC Low Dose) 81 Mg Ectab 81 MG PO QAM for 30 Days, #30 TABS Atorvastatin (Atorvastatin Calcium) 20 Mg Tab 20 MG PO QAM for 30 Days, #30 TAB Continued Medications: Albuterol Hfa (Ventolin Hfa) 200 Puffs/72343 Mcg Aers 2-4 PUFFS INH Q6H, INHALER Lamotrigine (Lamictal) 200 Mg Tab 200 MG PO HS, TAB Lisinopril (Zestril) 30 Mg Tab 30 MG PO QAM, TAB Multivitamin (Multivitamin) Tab 1 TABLET PO DAILY, TAB Quetiapine Fumarate (Seroquel) 25 Mg Tab 25 MG PO HS, TAB Warfarin Sodium (Coumadin) 5 Mg Tab 5 MG PO 2XWK, TAB MF Warfarin Sodium (Coumadin) 7.5 Mg Tab 7.5 MG PO 5XWK, TAB EVERY DAY BUT MF Admission Information HPI (per Admitting provider): This is a 66 year old male with a 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 of bifascicular block - states that this morning he started getting dizzy; he could feel the onset of almost passing out. Denied chest pain at that time. He then felt some jaw and throat tightness; initially he thought it was because of albuterol use this morning ( he has required albuterol for the past few days due to change in weather). He sat down, and then walked to the [employer] where his works , but he still felt mildly dizzy and nauseous. Presented to the ER, states that his symptoms had already subsided by the time he came here. Initial set of enzymes negative, EKG shows a bifascicular block, which was present in 2014. Due to this jaw and throat tightness and presyncope, decision was made to admit him. Physical Exam (per Admitting): General Appearance: no apparent distress Head: normocephalic, atraumatic Eyes: normal inspection ENT: hearing grossly normal Neck: supple Respiratory/Chest: chest non-tender, lungs clear, normal breath sounds, no respiratory distress, no accessory muscle use Cardiovascular: regular rate, rhythm, no edema, no gallop, no JVD, no murmur , normal peripheral pulses Abdomen/GI: normal bowel sounds, non tender, soft Extremities/Musculoskelatal: no calf tenderness, normal capillary refill, no pedal edema, + pertinent finding (L leg bigger than R leg, chronically) Neurologic/Psych: no motor/sensory deficits, alert, normal mood/affect Skin: normal color Lymphatic: no adenopathy Hospital Course This is a 66 year old male with a 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 of bifascicular block presents with presyncope and throat/jaw tightness stress test performed - shows apical ischemia, no need for cardiac cath at this time with no symptoms during stress test; start aspirin and statin Presyncope, r/o ACS, r/o arrhythmias 10/16 cardiac enzymes negative x3 EKG, NSR with RBBB noted echo pending plan is for stress echo later today patient currently NPO continue current medications d/c if stress is negative as presyncopal/dizziness episodes have resolved 10/15 monitor in tele EKG = bifascicular block, seems similar to previous EKG in 2015 initial cardiac enzyme negative trend enzymes check echo monitor in tele possible stress as per cardiology due to jaw pain, throat tightness, possibly atypical pain related to ACS check orthostatics Hx. of DVT continue Coumadin (5mg M and F, 7.5mg the other days) goal INR of 2-3 HTN continue Lisinopril BP stable DVT ppx Coumadin FULL CODE Total time spent on discharge = 50 minutes This includes examination of the patient, discharge planning, medication reconciliation, and communication with other providers. Discharge Instructions Please follow-up with Dr. Dumas on October 20 at 1:45PM You will be started on aspirin and Lipitor, take these as prescribed Follow-up with Dr. Handy, cardiology - an outpatient Zio (cardiac) monitor is recommended
[2016-10-16 16:32] VITALS: BP 125/76; PULSE 75; TEMP 36.8; O2SAT 95
--- NOTE | 2016-10-16 17:15 | CARDIOLOGY PROGRESS NOTE ---
DATE: 10/16/2016 The patient is seen after exercise stress echocardiography. Stress test demonstrated a focal apical inferior defect, suggestive of a small area of ischemia. The results were discussed at length with both the patient and his daughter. He was able to exercise more than 9 minutes on a standard [facility] protocol without exertional chest pain or shortness of breath. No reproduction of his symptoms noted at the time of admission. Conservative medical management versus further evaluation with coronary angiography discussed at length. The patient and daughter are agreeable to conservative medical management at this time. We will add low dose aspirin and statin therapy. I am not adding beta asif therapy as the patient is asymptomatic as well as due to presence of bifascicular block and near syncopal episode prompting admission. A 14-day Zio monitor will be performed and I will see him back for close cardiology followup in 2-4 weeks.
[2016-10-17] MEDS ORDERED: ASPIRIN 81 MG ECTAB PO SCH (09:00)
[2016-10-17] MEDS ORDERED: ATORVASTATIN 20 MG TAB PO SCH (09:00)
[2016-10-17] MEDS ORDERED: WARFARIN SOD 7.5 MG TAB PO SCH (09:00)
== END 2016-10-16 17:30 | disposition home or self-care (01) ==
LOC: EDBD 11:01 → C.EDB 11:03 → C.2E 14:03 → ENRESERV 14:44
PROVIDERS: ADMIT Family Medicine; ATTEND Family Medicine
DX: R55 Syncope and collapse (principal); I49.9 Cardiac arrhythmia, unspecified; I10 Essential (primary) hypertension; I25.9 Chronic ischemic heart disease, unspecified; I45.2 Bifascicular block; F41.9 Anxiety disorder, unspecified; Z86.718 Personal history of other venous thrombosis and embolism; Z79.01 Long term (current) use of anticoagulants; Z79.82 Long term (current) use of aspirin; Z79.899 Other long term (current) drug therapy